=== PATIENT | female | born 1965 | race Caucasian/White ===

== ENCOUNTER 2024-03-24 15:08 | Emergency (ER) | payer OTHER ==
[~2024-03-24] VITALS: Ht 162.6 cm; Wt 90.0 kg
[~2024-03-24 15:08] MED LIST: OMEP20 PO; PROP10TA10 PO
[2024-03-24 15:23] VITALS: BP 138/77; PULSE 101; RESP 18; TEMP 98.5; O2SAT 95
== END 2024-03-24 20:03 | disposition left against medical advice (07) ==
LOC: EMS 15:08
DX: K76.9 Liver disease, unspecified (principal); Z98.890 Other specified postprocedural states
CPT/HCPCS: 93005; 99281; Z7502